=== PATIENT | female | born 1990 | race Hispanic/Latino ===

== ENCOUNTER 2016-07-08 21:05 | Emergency (ER) | payer OTHER ==
[~2016-07-08] VITALS: Ht 162.6 cm; Wt 115.5 kg
[~2016-07-08 21:05] MED LIST: ASCO-294 PO; DOCU-41 PO; FERR-83 PO; IBUP-1827 PO; PREN-99 PO
[2016-07-08 21:09] VITALS: BP 125/86; PULSE 103; RESP 17; O2SAT 97
--- NOTE | 2016-07-08 21:49 | ED.REPORT ---
HPI- Female Date of Service Jul 08, 2016 ED Provider: Александр Palma DO A female with a history of UTI presents to the ED complaining of abnormal vaginal bleeding. The pt has been bleeding continuously for four months and passed a clot today. Her bleeding has been accompanied by mild abdominal cramping. The pt switched from the Depo shot control to oral hormones one month ago. Nursing Notes Stated Complaint: MENSES FOR 4 MONTHS Chief Complaint: Female Abdominal Pain Nursing Notes Reviewed: Yes Allergies: Coded Allergies: No Known Allergies (Verified Allergy, Unknown, 10/02/15) Scheduled Ascorbate Calcium (Vitamin C) 500 Mg Tablet 500 MG PO BID Docusate Sodium (Colace) 100 Mg Capsule 100 MG PO DAILY Ferrous Sulfate (Ferrous Sulfate) 325 Mg Tablet 325 MG PO BID Pnv95/Ferrous Fumarate/FA ( Multivitamins Tablet) 1 Each Tablet 1 EACH PO DAILY Scheduled PRN Ibuprofen (Ibuprofen) 600 Mg Tablet 600 MG PO Q6H PRN PRN For Mild Pain General Time Seen by MD: 21:49 Chief Complaint Other (Abnormal vaginal bleeding) Hx Obtained From: Patient Arrived By: Walk-in Sudden in Onset?: No Onset Occurred: More than a week ago... Symptom Duration: Since onset Recent Healthcare: No recent hospitalization, Recent doctor visit Similar Sx Previous: No Past Medical History Past Medical History Notes: Dr. Ayala Past Medical History Post-: January 2014 cholelithiasis G2 UTI Past Surgical History None reported Smoking History Never Smoker Social History Alcohol Use: Denies alcohol use Drug Use: Denies drug use Other Social History: Good social support Ambulatory Status Independent Review of Systems Constitutional: Denies: Fever GI: Reports: Abdominal pain, Denies: Vomiting Female: Reports: Vaginal bleeding - abnl Musculoskeletal: Denies: Back pain, Neck pain Skin: Denies Rash Complete sys rev & neg: except as marked. Physical Exam Initial Vital Signs Vital Signs (First) Date Time Temp Pulse Resp B/P Pulse Ox O2 Delivery O2 Flow Rate FiO2 07/08/16 21:09 36.6 103 17 125/86 97 Room Air Initial VS: Reviewed Female Genitourinary: Exam deferred General/Constitutional: Awake, Alert Respiratory / Chest: Atraumatic, Breath sounds NL, Breath sounds = bilat, No respiratory distress Cardiovascular: Heart rate NL, Regular rhythm, Heart sounds NL Abdomen: Atraumatic, Soft, Non-tender Back: Atraumatic, Full range of motion Skin: Atraumatic, Color NL, No rash, Warm, Dry Head / Eyes: Atraumatic, Normocephalic, PERRL, EOMI ENT: Atraumatic, Airway patent, Mucous membranes moist Neck: Atraumatic, Supple, Full range of motion Upper Extremity / MS: Atraumatic, Full range of motion Lower Extremity / Pelvis / MS: Atraumatic, Full range of motion Neurologic: Oriented X3, Speech NL, No motor deficits, No sensory deficits Psychiatric: Affect NL, Mood NL Interpretation & Diagnostics Lab Results Interpretation Result Diagram: 07/08/16220707/08/162207 Test 07/08/16 22:00 07/08/16 22:08 Urine Color Yellow (YELLOW) Urine Appearance Hazy (CLEAR,HAZY) Urine pH 6.5 (5.0-8.0) Urine Specific [place] 1.015 (1.003-1.035) Urine Protein Negativemg/dL (NEG,TRACE) Urine Glucose (UA) Negativemg/dL (NEGATIVE) Urine Ketones Negativemg/dL (NEGATIVE) Urine Occult Blood Large (NEGATIVE) Urine Nitrite Negative (NEGATIVE) Urine Bilirubin Negative (NEGATIVE) Urine Urobilinogen Normalmg/dL (NORMAL) Urine Leukocyte Esterase Negative (NEGATIVE) Urine RBC 3-10/hpf (0-2) Urine WBC 0-5/hpf (0-5) Urine Epithelial Cells Moderate/hpf (NONE-MOD) Urine Crystals None seen (NONE SEEN) Urine Bacteria Few/hpf (NONE-FEW) Urine Hyaline Casts None/lpf (NONE) Urine Granular Casts None seen (NONE SEEN) Urine Waxy Casts None seen (NONE SEEN) Urine Red Blood Cell Casts None seen (NONE SEEN) Urine White Blood Cell Casts None seen (NONE SEEN) Urine Mucus None seen (None Seen) Urine Trichomonas None seen (NONE SEEN) Urine Yeast None (NONE SEEN) Urinalysis Comment None Urine Culture Reflexed Not indicated Hold Urine Received (Received) White Blood Count 7.5th/mm3 (3.8-10.1) Red Blood Count 4.68mil/mm3 (3.90-5.20) Hemoglobin 13.9g/dL (12.0-15.6) Hematocrit 42.2% (35.0-46.0) Mean Corpuscular Volume 90.2fL (81-100) Mean Corpuscular Hemoglobin 29.7pg (27.0-35.0) Mean Corpuscular Hemoglobin Concent 32.9% (32.0-37.0) Red Cell Distribution Width 13.9% (12.3-15.4) Platelet Count 300bil/L (150-400) Neutrophils (%) (Auto) 48.2% (40-74) Lymphocytes (%) (Auto) 39.9% (14-46) Monocytes (%) (Auto) 8.2% (4-12) Eosinophils (%) (Auto) 3.1% (0-5) Basophils (%) (Auto) 0.5% (0-3) Sodium Level 139mEq/L (134-144) Potassium Level 3.7mEq/L (3.5-5.2) Chloride Level 101mEq/L (97-108) Carbon Dioxide Level 23mmol/L (18-29) Blood Urea Nitrogen 11mg/dL (6-20) Creatinine 0.53mg/dL (0.57-1.00) Estimat Glomerular Filtration Rate 197mL/min (>59) Glucose Level 82mg/dL (60-99) Calcium Level 9.1mg/dL (8.5-10.1) Total Bilirubin 0.2mg/dL (0.0-1.2) Aspartate Amino Transf (AST/SGOT) 25U/L (0-50) Alanine Aminotransferase (ALT/SGPT) 42U/L (0-32) Alkaline Phosphatase 57U/L (25-150) Total Protein 7.3g/dL (6.4-8.4) Albumin 4.0g/dL (3.4-5.0) HCG Beta Subunit 0.500mIU/mL Hold Rivera Top Tube Received (Received) Pulse Oximetry Interpretation Pulse Oximetry Interpretation: 97% on room air Pulse Oximetry: Pulse Ox normal Re-Eval/Medical Decision Source of Hx: Old records Re-Evaluation/Progress : Time of Eval: 23:05 Patient Status: Condition improved Re-Evaluation/Progress Note: Pt rechecked, who is resting. The diagnosis and plan for discharge are discussed. The pt understands and agrees with the plan. All questions are addressed at this time. Counseled Regarding: Diagnosis, Lab results, Need for follow-up, When/why to return to ED Discharge & Departure Impression: Primary Impression: Dysmenorrhea Disposition: Home Discharge Condition All VS Reviewed: Yes Condition: Stable Patient Instructions: Dysmenorrhea (ED) Additional Instructions: Your labs are reassuring. You are not anemic or . Take 1 [place] every 6 hours as needed for severe pain. Do not drive, drink alcohol or consume acetaminophen while taking the [place]. Call your bank vault clerk or primary care physician Sunday morning to arrange a follow up appointment next week. Return to the emergency department if you develop any new or worsening symptoms. Referrals: [facility] (PCP) Kendrick Attestation Portions of this note were transcribed by Mara Elizondo. I, Dr. Palma personally performed the history, physical exam and medical decision-making; I reviewed and confirmed the accuracy of the information in the transcribed note. Signed by: Kendrick Greenfield, 07/08/16 and [id number]. copies to: [facility] ADAM MEDINA Todd P DO Jul 08, 2016 21:49 MARA ELIZONDO Jul 08, 2016 22:19
[2016-07-08 22:21] LABS: BASOPHILS % (AUTO) 0.5 % (0-3); EOSINOPHILS % (AUTO) 3.1 % (0-5); MONOCYTES % (AUTO) 8.2 % (4-12); Mean Corpuscular Hemoglobin 29.7 pg (27.0-35.0); Mean Corpuscular Volume 90.2 fL (81-100); NEUTROPHILS % (AUTO) 48.2 % (40-74); Platelet Count 300 bil/L (150-400)
[2016-07-08] MEDS ORDERED: HYDROcodone-APAP 5-325 mg Tablet PO ONE (22:45)
[2016-07-08 23:26] VITALS: BP 116/73; PULSE 68; RESP 16; O2SAT 99
[2016-07-08 23:29] LABS: APPEARANCE,URINE HAZY (CLEAR,HAZY); COLOR,URINE YELLOW (YELLOW); OCCULT BLOOD,URINE LARGE (NEGATIVE); PH,URINE 6.5 (5.0-8.0); UROBILINOGEN,URINE NORMAL (NORMAL)
== END 2016-07-08 23:28 | disposition home or self-care (01) ==
LOC: SED 21:05
DX: N94.6 Dysmenorrhea, unspecified (principal); R10.9 Unspecified abdominal pain; Z87.440 Personal history of urinary (tract) infections

== ENCOUNTER 2016-07-17 06:37 | Emergency (ER) | payer OTHER ==
[~2016-07-17] VITALS: Ht 162.6 cm; Wt 113.6 kg
[2016-07-17 06:48] VITALS: BP 135/91; PULSE 92; RESP 26; O2SAT 94
--- NOTE | 2016-07-17 07:01 | ED.REPORT ---
HPI-NVD Date of Service July 17, 2016 ED Provider: Ken Spence DO 26 year old female with a history of cholecystectomy presents to the ER complaining of five days of upper abdominal pain and vomiting. Associated symptoms include diarrhea, and fever for the first two days of symptoms. She reports history of similar pain associated with cholelithiasis. Patient denies hematemesis, and hematochezia. Nursing Notes Stated Complaint: VOMITING/ABDOMINAL PAIN Chief Complaint: Female Abdominal Pain Nursing Notes Reviewed: Yes Allergies: Coded Allergies: No Known Allergies (Verified Allergy, Unknown, 07/17/16) Scheduled Ascorbate Calcium (Vitamin C) 500 Mg Tablet 500 MG PO BID Docusate Sodium (Colace) 100 Mg Capsule 100 MG PO DAILY Ferrous Sulfate (Ferrous Sulfate) 325 Mg Tablet 325 MG PO BID Pnv95/Ferrous Fumarate/FA ( Multivitamins Tablet) 1 Each Tablet 1 EACH PO DAILY Scheduled PRN Ibuprofen (Ibuprofen) 600 Mg Tablet 600 MG PO Q6H PRN PRN For Mild Pain Ondansetron ODT (Zofran ODT) 4 Mg Tablet 4 MG PO Q4H PRN PRN For Nausea General Time Seen by MD: 06:57 Chief Complaint Vomiting, Abd pain, constant Hx Obtained From: Patient Arrived By: Walk-in Onset Occurred: 5 days ago Symptom Duration: Since onset Location: : Abdomen upper Quality: Painful Severity: Current: Moderate Severity: Maximum: Moderate Associated with: Reports: Fever, Denies: Constipation Pertinent Negative: Pt denies other symptoms Similar Sx Previous: Yes Past Medical History Past Medical History Notes: Dr. Ayala Past Medical History Post-: January 2014 cholelithiasis G2 UTI Past Surgical History Reports: Cholecystectomy Smoking History Never Smoker Social History Alcohol Use: Denies alcohol use Drug Use: Denies drug use Other Social History: Good social support Ambulatory Status Independent Review of Systems Constitutional: Reports: Fever GI: Reports: Abdominal pain, Diarrhea, Nausea, Vomiting, Denies: Bloody/tarry stool, Constipation, Hematemesis, Hematochezia, Melena Complete sys rev & neg: except as marked. Female: Denies: Dysuria Physical Exam Initial Vital Signs Vital Signs (First) Date Time Temp Pulse Resp B/P Pulse Ox O2 Delivery O2 Flow Rate FiO2 07/17/16 06:48 36.7 92 26 135/91 94 Room Air Initial VS: Reviewed Head / Eyes: Atraumatic, Normocephalic Neck: Supple, Non-tender, Full range of motion Extremities: Vascular intact, Neuro intact, No swelling, No tenderness Skin: Warm, Dry, No cyanosis Neurologic: Alert, Oriented, Nonfocal Psychiatric: Mood/affect normal, Behavior normal, Normal thought content General/Constitutional: Awake, Alert, Well developed Appearance / Presentation: Positive: Obese Abdomen: Soft, No guarding, No rebound Upper abdominal tenderness. Interpretation & Diagnostics Lab Results Interpretation Result Diagram: 07/17/16 0733 07/17/16 0733 Test 07/17/16 07:33 07/17/16 07:44 White Blood Count 8.1th/mm3 (3.8-10.1) Red Blood Count 4.93mil/mm3 (3.90-5.20) Hemoglobin 14.8g/dL (12.0-15.6) Hematocrit 44.2% (35.0-46.0) Mean Corpuscular Volume 89.7fL (81-100) Mean Corpuscular Hemoglobin 30.0pg (27.0-35.0) Mean Corpuscular Hemoglobin Concent 33.5% (32.0-37.0) Red Cell Distribution Width 13.6% (12.3-15.4) Platelet Count 323bil/L (150-400) Neutrophils (%) (Auto) 83.7% (40-74) Lymphocytes (%) (Auto) 11.6% (14-46) Monocytes (%) (Auto) 3.3% (4-12) Eosinophils (%) (Auto) 0.9% (0-5) Basophils (%) (Auto) 0.4% (0-3) Sodium Level 139mEq/L (134-144) Potassium Level 3.8mEq/L (3.5-5.2) Chloride Level 101mEq/L (97-108) Carbon Dioxide Level 22mmol/L (18-29) Blood Urea Nitrogen 9mg/dL (6-20) Creatinine 0.46mg/dL (0.57-1.00) Estimat Glomerular Filtration Rate 232mL/min (>59) Glucose Level 152mg/dL (60-99) Calcium Level 9.1mg/dL (8.5-10.1) Magnesium Level 2.1mg/dL (1.6-2.6) Total Bilirubin 0.4mg/dL (0.0-1.2) Aspartate Amino Transf (AST/SGOT) 22U/L (0-50) Alanine Aminotransferase (ALT/SGPT) 48U/L (0-32) Alkaline Phosphatase 72U/L (25-150) Total Protein 7.5g/dL (6.4-8.4) Albumin 4.0g/dL (3.4-5.0) Lipase 23U/L (13-60) Hold Rivera Top Tube Received (Received) Hold Urine Received (Received) Lab Results Interpretation: Urinalysis: Negative . No sign of infection. Large blood. Re-Eval/Medical Decision Med Decision/Clinical Course Patient complains of vomiting and diarrhea, labs and serial abdominal exams are reassuring. I do not suspect an acute abdomen. She is feeling better and will be discharged with Zofran. Return in follow-up precautions are given. Source of Hx: Old records Re-Evaluation/Progress : Time of Eval: 08:18 Patient Status: Condition resolved Re-Evaluation/Progress Note: Benign abdominal examination. Nontender without rebound or guarding in all 4 quadrants Discussed physical examination findings and plan to discharge. Patient is amenable to the plan. Return precautions given. All other questions addressed. Counseled Regarding: Diagnosis, Lab results, Need for follow-up, When/why to return to ED Discharge & Departure Impression: Primary Impression: Abdominal pain Disposition: Home Discharge Condition All VS Reviewed: Yes Condition: Stable Additional Instructions: Take Zofran as needed for nausea. Take Tylenol as needed for pain. Follow-up with your primary care provider in 1-2 days for re-evaluation. Return to the ER if you develop worsening or concerning symptoms. Referrals: Karoline Zafar MD (PCP) Scribe Attestation Portions of this note were transcribed by Jose Gomes. I, Dr. Spence, personally performed the history, physical exam and medical decision-making; I reviewed and confirmed the accuracy of the information in the transcribed note. Signed by: Kendrick Landers, 07/17/2016 and 08:22 copies to: Karoline Zafar MD, Timothy S DO July 17, 2016 07:00 JOSE GOMES July 17, 2016 07:02
[2016-07-17] MEDS ORDERED: 0.9% Sodium Chloride 1,000 ML IV ONE (07:09)
[2016-07-17] MEDS ORDERED: Ketorolac 15 mg/mL Inj IVPUSH ONE (07:10)
[2016-07-17] MEDS ORDERED: Ondansetron 2 mg/mL 2 mL Inj IVPUSH PRN (07:10)
[2016-07-17 07:37] LABS: BASOPHILS % (AUTO) 0.4 % (0-3); EOSINOPHILS % (AUTO) 0.9 % (0-5); MONOCYTES % (AUTO) 3.3 % (4-12); Mean Corpuscular Volume 89.7 fL (81-100); NEUTROPHILS % (AUTO) 83.7 % (40-74); Platelet Count 323 bil/L (150-400)
[2016-07-17 08:02] LABS: Magnesium 2.1 mg/dL (1.6-2.6)
[2016-07-17] MEDS ORDERED: ONDA4TAB9 PO (08:26)
== END 2016-07-17 08:45 | disposition home or self-care (01) ==
LOC: SED 06:37
DX: R10.10 Upper abdominal pain, unspecified (principal); Z90.49 Acquired absence of other specified parts of digestive tract; Z79.899 Other long term (current) drug therapy
CPT/HCPCS: 36415; 80053; 81025; 83690; 83735; 85025; 96374; 96375; 99284; J1885; J2405; J7030

== ENCOUNTER 2016-10-02 06:15 | Emergency (ER) | payer OTHER ==
[~2016-10-02] VITALS: Ht 162.6 cm; Wt 119.5 kg
[~2016-10-02 06:15] MED LIST changes: +ONDA4TAB9 PO
[2016-10-02 06:23] VITALS: BP 133/79; PULSE 78; RESP 20; O2SAT 96
--- NOTE | 2016-10-02 06:24 | ED.REPORT ---
HPI-Abd Pain F Under 40 Date of Service Oct 02, 2016 ED Provider: Don Conner MD Pt is a 26 year old female with a history of cholecystectomy who presents to the ED complaining of vomiting onset 3 days ago. She c/o associated nausea, lower back pain, and abdominal pain. She denies fever and bowel-related symptoms. The pt denies any other healthy conditions, smoking, and alcohol use. She reports that her symptoms feel similar to when her gallbladder was acting up prior to her cholecystectomy, stating her vomit has a similar appearance. Nursing Notes Stated Complaint: CRAMPING LOWER BACK,VOMITING,NAUSEA Chief Complaint: Female Abdominal Pain Nursing Notes Reviewed: Yes Allergies: Coded Allergies: No Known Allergies (Verified Allergy, Unknown, 07/17/16) Scheduled Ascorbate Calcium (Vitamin C) 500 Mg Tablet 500 MG PO BID Docusate Sodium (Colace) 100 Mg Capsule 100 MG PO DAILY Ferrous Sulfate (Ferrous Sulfate) 325 Mg Tablet 325 MG PO BID Pnv95/Ferrous Fumarate/FA ( Multivitamins Tablet) 1 Each Tablet 1 EACH PO DAILY Scheduled PRN Ibuprofen (Ibuprofen) 600 Mg Tablet 600 MG PO Q6H PRN PRN For Mild Pain Ondansetron ODT (Zofran ODT) 4 Mg Tablet 4 MG PO Q4H PRN PRN For Nausea Ondansetron ODT (Zofran ODT) 4 Mg Tablet 4 MG PO Q4H PRN PRN For Nausea General Time Seen by MD: 06:22 Chief Complaint Vomiting moderate Hx Obtained From: Patient Arrived By: Walk-in Sudden in Onset?: No Onset Occurred: 3 days ago Symptom Duration: Since onset Location: : Abdomen lower: Back Quality: Painful Radiation: : Does not radiate Severity: Current: Moderate Severity: Maximum: Moderate Recent Healthcare: No recent doctor visit, No recent hospitalization Similar Sx Previous: Yes Past Medical History Past Medical History Notes: Dr. Ayala Past Medical History Post-: January 2014 cholelithiasis G2 UTI Past Surgical History Reports: Cholecystectomy Smoking History Never Smoker Social History Alcohol Use: Denies alcohol use Drug Use: Denies drug use Other Social History: Good social support Ambulatory Status Independent Review of Systems Constitutional: Denies: Fever GI: Reports: Abdominal pain, Nausea, Vomiting, Denies: Constipation, Diarrhea Musculoskeletal: Reports: Back pain Complete sys rev & neg: except as marked. Physical Exam Initial Vital Signs Vital Signs (First) Date Time Temp Pulse Resp B/P Pulse Ox O2 Delivery O2 Flow Rate FiO2 10/02/16 06:23 37.0 78 20 133/79 96 Room Air Initial VS: Reviewed Head / Eyes: Atraumatic, Normocephalic Neck: Supple, Full range of motion Extremities: Vascular intact, Neuro intact Skin: Warm, Dry, No cyanosis Neurologic: Alert, Oriented, Nonfocal Psychiatric: Mood/affect normal, Behavior normal General/Constitutional: Awake, Alert, Cooperative Respiratory / Chest: Atraumatic, Breath sounds NL, Breath sounds = bilat Cardiovascular: Heart rate NL, Regular rhythm, Heart sounds NL Abdomen: Atraumatic, Soft, Non-tender Back: Atraumatic, Inspection NL, Full range of motion Interpretation & Diagnostics Lab Results Interpretation Result Diagram: 10/02/16 0637 10/02/16 0637 Test 10/02/16 06:37 10/02/16 07:04 White Blood Count 7.4th/mm3 (3.8-10.1) Red Blood Count 5.04mil/mm3 (3.90-5.20) Hemoglobin 14.9g/dL (12.0-15.6) Hematocrit 45.1% (35.0-46.0) Mean Corpuscular Volume 89.5fL (81-100) Mean Corpuscular Hemoglobin 29.6pg (27.0-35.0) Mean Corpuscular Hemoglobin Concent 33.0% (32.0-37.0) Red Cell Distribution Width 13.8% (12.3-15.4) Platelet Count 315bil/L (150-400) Neutrophils (%) (Auto) 52.2% (40-74) Lymphocytes (%) (Auto) 34.9% (14-46) Monocytes (%) (Auto) 7.4% (4-12) Eosinophils (%) (Auto) 4.9% (0-5) Basophils (%) (Auto) 0.5% (0-3) Sodium Level 137mEq/L (134-144) Potassium Level 4.0mEq/L (3.5-5.2) Chloride Level 102mEq/L (97-108) Carbon Dioxide Level 21mmol/L (18-29) Blood Urea Nitrogen 12mg/dL (6-20) Creatinine 0.44mg/dL (0.57-1.00) Estimat Glomerular Filtration Rate 244mL/min (>59) Glucose Level 100mg/dL (60-99) Calcium Level 8.9mg/dL (8.5-10.1) Magnesium Level 2.0mg/dL (1.6-2.6) Total Bilirubin 0.3mg/dL (0.0-1.2) Aspartate Amino Transf (AST/SGOT) 29U/L (0-50) Alanine Aminotransferase (ALT/SGPT) 48U/L (0-32) Alkaline Phosphatase 80U/L (25-150) Total Protein 7.2g/dL (6.4-8.4) Albumin 3.9g/dL (3.4-5.0) Lipase 21U/L (13-60) Hold Urine Received (Received) Re-Eval/Medical Decision Source of Hx: Old records Re-Evaluation/Progress : Time of Eval: 07:47 Re-Evaluation/Progress Note: Informed pt of plan for discharge. Pt understands and agrees with plan for discharge. F/U instructions and RTER warnings given. All questions addressed. Counseled Regarding: Diagnosis, Lab results, Need for follow-up, When/why to return to ED Discharge & Departure Primary Impression: Nausea & vomiting Vomiting type: unspecified Vomiting Intractability: unspecified Qualified Code: R11.2 - Nausea with vomiting, unspecified Disposition: Home Discharge Condition All VS Reviewed: Yes Condition: Stable Patient Instructions: Acute Nausea and Vomiting (ED) Additional Instructions: No dangerous cause for your symptoms was discovered. Follow up right away for jaundice, fever or uncontrolled pain or vomiting. Use ondansetron as needed for nausea. Call today for an appointment with Dr. Zafar later this week if not improving. Referrals: Karoline Zafar MD (PCP) Scribe Attestation Portions of this note were transcribed by Eloisa Boyce. IDr. Conner personally performed the history, physical exam and medical decision-making; I reviewed and confirmed the accuracy of the information in the transcribed note. Signed by: Kendrcik Tierney, 10/02/16 and 09:30. copies to: Karoline Zafar MD, Kirk H MD Oct 02, 2016 06:24 Eloisa Austin 24, 2017 07:49
[2016-10-02 06:52] LABS: BASOPHILS % (AUTO) 0.5 % (0-3); EOSINOPHILS % (AUTO) 4.9 % (0-5); MONOCYTES % (AUTO) 7.4 % (4-12); Mean Corpuscular Hemoglobin 29.6 pg (27.0-35.0); Mean Corpuscular Volume 89.5 fL (81-100); NEUTROPHILS % (AUTO) 52.2 % (40-74); Platelet Count 315 bil/L (150-400)
[2016-10-02] MEDS ORDERED: ONDA4TAB9 PO (07:54)
[2016-10-02 08:06] VITALS: PULSE 67; RESP 14; O2SAT 97
== END 2016-10-02 08:08 | disposition home or self-care (01) ==
LOC: SED 06:15
DX: R11.2 Nausea with vomiting, unspecified (principal); M54.5 Low back pain; R10.9 Unspecified abdominal pain; Z90.49 Acquired absence of other specified parts of digestive tract; Z87.19 Personal history of other diseases of the digestive system; Z87.440 Personal history of urinary (tract) infections; Z79.3 Long term (current) use of hormonal contraceptives